=== PATIENT | male | born 1955 | race Caucasian/White ===

== ENCOUNTER → 2016-08-10 | Outpatient (CLI) | payer OTHER ==
[~2016-08-10] MED LIST: AMOXICILLIN 8751 TAB PO; GLUCOPHAGE500 MG/TAB PO; LIPITOR 10MG10 MG PO; LOTREL 10 MG-201 CAP PO; NORCO 325 MG-51 TAB PO
== END ==
LOC: COL.RAD 12:18
DX: S63.652A Sprain of metacarpophalangeal joint of right middle finger, initial encounter (principal); M25.441 Effusion, right hand; M25.841 Other specified joint disorders, right hand

== ENCOUNTER 2016-11-07 08:00 | Outpatient (RCR) | payer OTHER | END 2016-11-08 15:05 | LOC: WSOT 08:00 | DX: S63.654A Sprain of metacarpophalangeal joint of right ring finger, initial encounter (principal) ==

== ENCOUNTER → 2018-08-18 | Outpatient (CLI) | payer OTHER ==
[~2018-08-18] VITALS: Ht 180.3 cm; Wt 170.1 kg
[~2018-08-18] MED LIST changes: +KOMBIGLYZE XR 11 TE1 PO
[2018-08-18 12:30] VITALS: BP 161/91; PULSE 67
[2018-08-18 14:30] VITALS: BP 147/78; PULSE 68
[2018-08-18 14:45] VITALS: BP 150/83; PULSE 60
== END ==
LOC: COL.RAD 12:04
DX: M75.111 Incomplete rotator cuff tear or rupture of right shoulder, not specified as traumatic (principal)
CPT/HCPCS: J2250; J2704; J3010

== ENCOUNTER → 2018-11-28 | Outpatient (CLI) | payer BC | LOC: COL.VAS 12:28 | DX: I82.441 Acute embolism and thrombosis of right tibial vein (principal); I82.811 Embolism and thrombosis of superficial veins of right lower extremity ==

== ENCOUNTER → 2020-04-07 | Outpatient (CLI) | payer BC | LOC: COL.VAS 14:07 | DX: M79.605 Pain in left leg (principal); M79.604 Pain in right leg; M79.89 Other specified soft tissue disorders ==

== ENCOUNTER → 2021-06-26 | Day surgery (SDC) | payer BC, MEDICARE | LOC: COL.CARD 07:45 | DX: R00.2 Palpitations (principal) ==

== ENCOUNTER → 2023-10-10 | Outpatient (CLI) | payer MEDICARE, BC ==
[~2023-10-10] MED LIST changes: +ALDACTONE 25MG25 M1 PO; +COREG 25MG25 MG/TAB PO; +COZAAR100 MG PO; +IMDUR 60MG60 MG/TAB PO; +LANTUS SOLOS100 U/ML SQ; +MOUNJARO15 MG/0.5 SQ; +PRAVACHOL 20MG20 MG PO; +TAMBOCOR 1100 MG/TAB PO; +XARELTO2.5 MG PO
== END ==
LOC: COL.RAD 14:11
DX: M51.36 Other intervertebral disc degeneration, lumbar region (principal); M47.816 Spondylosis without myelopathy or radiculopathy, lumbar region; M25.78 Osteophyte, vertebrae; M48.061 Spinal stenosis, lumbar region without neurogenic claudication; M51.9 Unspecified thoracic, thoracolumbar and lumbosacral intervertebral disc disorder

== ENCOUNTER → 2023-10-22 | Outpatient (CLI) | payer MEDICARE, BC ==
[~2023-10-22] VITALS: Ht 180.3 cm; Wt 177.0 kg
[~2023-10-22] MED LIST changes: +Triamcinolone 40 MG/ML 1 ML VIAL IJ SCH
[2023-10-22 07:34] VITALS: BP 154/85; PULSE 86; TEMP 97.5
[2023-10-22 08:20] VITALS: BP 155/81; PULSE 84
--- NOTE | 2023-10-22 08:50 | NUR ---
PATIENT COMPLETED HIS RECOVERY TIME. PATIENT DENIES ANY PAIN, NUMBNESS, OR TINGLING. PATIENT ABLE TO WALK ON HIS OWN WITHOUT ASSISTANCE. BANDAGE REMAINS CLEAN, DRY, AND INTACT. ESCORTED PATIENT DOWN TO PATIENT ENTRANCE VIA WHEELCHAIR WITH ALL OF HIS PERSONAL ITEMS. PATIENT ABLE TO GET INTO FRONT PASSNEGER SEAT WITHOUT ANY ISSUES OR ASSISTANCE. ALL NEEDS MET.
== END ==
LOC: COL.RAD 07:04
DX: M51.36 Other intervertebral disc degeneration, lumbar region (principal)
CPT/HCPCS: J0665; J3301

== ENCOUNTER → 2023-11-27 | Outpatient (CLI) | payer MEDICARE, BC ==
[~2023-11-27] VITALS: Ht 180.3 cm; Wt 178.2 kg
[2023-11-27 08:07] VITALS: BP 160/91; PULSE 85; TEMP 97.4
[2023-11-27 09:15] VITALS: BP 145/80; PULSE 71
== END ==
LOC: COL.RAD 07:40
DX: M51.360 Other intervertebral disc degeneration, lumbar region with discogenic back pain only (principal)
CPT/HCPCS: J0665; J3301